=== PATIENT | female | born 1970 | race Caucasian/White ===

== ENCOUNTER 2021-04-26 04:37 | Day surgery (SDC) | payer OTHER ==
[2021-04-23 15:31] VITALS: BMI 25.9
[2021-04-26 10:36] VITALS: TEMP 97.1
[2021-04-26 12:16] VITALS: BP 101/50; PULSE 67
== END 2021-04-26 11:40 | disposition home or self-care (01) ==
LOC: JASU-ENDO 04:37
PROVIDERS: ATTEND Internal Medicine Gastroenterology
PROC: 0DBN8ZX Excision of Sigmoid Colon, Via Natural or Artificial Opening Endoscopic, Diagnostic (ICD-10-PCS; principal; 2021-04-26 09:30)
DX: Z12.11 Encounter for screening for malignant neoplasm of colon (principal); D12.5 Benign neoplasm of sigmoid colon; I10 Essential (primary) hypertension
CPT/HCPCS: 81025; 88305-TC

== ENCOUNTER 2024-12-02 06:34 | Day surgery (SDC) | payer OTHER ==
[2024-11-24 14:40] VITALS: BMI 26.5
[2024-12-02 09:17] VITALS: TEMP 98
[2024-12-02 09:45] VITALS: RESP 17
[2024-12-02 09:47] VITALS: BP 109/82; PULSE 69
== END 2024-12-02 09:47 | disposition home or self-care (01) ==
LOC: JASU-ENDO 06:34
PROVIDERS: ATTEND Internal Medicine Gastroenterology
PROC: 0DBL8ZX Excision of Transverse Colon, Via Natural or Artificial Opening Endoscopic, Diagnostic (ICD-10-PCS; 2024-12-02)
PROC: 0DBM8ZX Excision of Descending Colon, Via Natural or Artificial Opening Endoscopic, Diagnostic (ICD-10-PCS; principal; 2024-12-02 08:45)
DX: Z12.11 Encounter for screening for malignant neoplasm of colon (principal); D12.3 Benign neoplasm of transverse colon; D12.4 Benign neoplasm of descending colon; Z86.0100 Personal history of colon polyps, unspecified
CPT/HCPCS: 88305-TC